=== PATIENT | male | born 1975 | race Caucasian/White ===

== ENCOUNTER 2020-12-01 05:05 | Inpatient (IN) | payer OTHER ==
[~2020-12-01] VITALS: Ht 188 cm; Wt 103.4 kg
--- NOTE | 2020-12-01 05:20 | NUR ---
PATIENT BIBRA C/O WAKING UP WITH PALPITATIONS. PATIENT -N/V -FEVER -PAIN, NO MEDICATIONS TAKEN. PATIENT STATED TO HAVING A FEW ALCOHOLIC DRINKS LAST NIGHT. PATIENT IS A/O X 4, RR EVEN AND UNLABORED, NO SOB NOTED. PATIENT CONNECTED TO CARDIAC AND POX MONITOR.
[2020-12-01 05:26] LABS: BASOPHILS % (AUTO) 0.7 % (0.0-2.0); EOSINOPHILS % (AUTO) 3.4 % (0.0-6.0); HEMATOCRIT 43 % (39-51); HEMOGLOBIN 14.5 g/dL (13.5-17.5); LYMPHOCYTES # (AUTO) 3.8 K/uL (0.8-4.8); LYMPHOCYTES % (AUTO) 57.5 % (20.0-44.0); MEAN CORPUSCULAR HGB CONC 34 g/dl (31.0-36.0); MEAN CORPUSCULAR VOLUME 95 fL (80-96); MONOCYTES # (AUTO) 0.5 K/uL (0.1-1.30); MONOCYTES % (AUTO) 7.9 % (2.0-12.0); NEUTROPHILS % (AUTO) 30.5 % (43.0-81.0); PLATELET COUNT (AUTO) 245 K/uL (150-450); RED BLOOD CELL COUNT(AUTO) 4.51 MIL/uL (4.5-6.0); WHITE BLOOD COUNT (AUTO) 6.5 K/uL (4.3-11.0)
[2020-12-01 05:35] LABS: CALCIUM, SERUM 9.1 mg/dL (8.5-10.1); CREATININE 1.3 mg/dL (0.6-1.3); POTASSIUM 3.4 mmol/L (3.5-5.1)
[2020-12-01 05:53] LABS: ALBUMIN 4.2 g/dL (3.4-5.0); BILIRUBIN,DIRECT 0.1 mg/dL (0.0-0.2); BILIRUBIN,TOTAL 0.2 mg/dL (0.2-1.0); TOTAL PROTEIN, SERUM 7.4 g/dL (6.4-8.2)
[2020-12-01 06:18] LABS: LYMPHOCYTES % (MANUAL) 64 % (16-48); MONOCYTES % (MANUAL) 6 % (0-11.0); NEUTROPHILS % (MANUAL) 30 (42-76)
[2020-12-01] MEDS ORDERED: ASPIRIN 81 MG TAB.CHEW ONE ×2 (06:22→08:50)
[2020-12-01] MEDS ORDERED: ASPIRIN EC 81 MG TABLET.DR PO ONE (06:30)
[2020-12-01] MEDS ORDERED: Z GUARD REMEDY 2 OZ OINT TP PRN (08:30)
[2020-12-01] MEDS ORDERED: MORPHINE SULFATE INJ 2 MG/ML DISP.SYRIN IV PRN (08:30)
[2020-12-01] MEDS ORDERED: LORAZEPAM 1 MG TABLET PO PRN (08:30)
[2020-12-01] MEDS ORDERED: ONDANSETRON HCL/PF 4 MG/2 ML VIAL IVP PRN (08:30)
[2020-12-01] MEDS ORDERED: ACETAMINOPHEN 325 MG TABLET PO PRN (08:30)
[2020-12-01] MEDS ORDERED: HYDROCODONE/APAP 5/325MG TABLET PO PRN (08:30)
[2020-12-01] MEDS ORDERED: MAGNESIUM HYDROXIDE 30 ML UDC PO PRN (08:30)
[2020-12-01] MEDS ORDERED: ENOXAPARIN SODIUM 40 MG/0.4 ML DISP.SYRIN SQ SCH (08:30)
[2020-12-01] MEDS ORDERED: POTASSIUM CHLORIDE 20 MEQ TAB.PRT.SR PO ONE ×2 (08:30→08:50)
[2020-12-01] MEDS ORDERED: MAG HYDROX/AL HYDROX/SIMETH 30 ML UDC PO PRN (08:30)
[2020-12-01] MEDS ORDERED: ZOLPIDEM TARTRATE 5 MG TABLET PO PRN (08:30)
[2020-12-01] MEDS ORDERED: ENOXAPARIN SODIUM 40 MG/0.4 ML DISP.SYRIN SQ ONE (08:49)
[2020-12-01] MEDS ORDERED: ASPIRIN 81 MG TAB.CHEW PO SCH (09:00)
[2020-12-01] MEDS ORDERED: LORAZEPAM 1 MG TABLET ONE (09:02)
--- NOTE | 2020-12-01 09:05 | NUR ---
THE PATIENT C/O BEING ANXIOUS. ATIVAN PRN GIVEN PER ORDER. WILL CONTINUE TO MONITOR THE PATIENT
[2020-12-01 09:06] LABS: PHOSPHORUS 3.9 mg/dL (2.5-4.9)
[2020-12-01] MEDS ORDERED: CT SWABBABLE VALVE TRANS SET 1 EA INFUS.SET MC ONE (09:45)
[2020-12-01] MEDS ORDERED: NITROGLYCERIN 0.4 MG/TAB BOTTLE ONE (09:45)
[2020-12-01] MEDS ORDERED: METOPROLOL TARTRATE INJ 5 MG/5 ML AMPUL ONE (09:45)
[2020-12-01] MEDS ORDERED: IOHEXOL-350 100 ML VIAL IV ONE (09:45)
[2020-12-01] MEDS ORDERED: IV NS 0.9% 250 ML IV ONE (09:46)
[2020-12-01 09:53] LABS: THYROID STIMULATING HORMONE 2.946 uIU/mL (0.358-3.74)
[2020-12-01] MEDS: METOPROLOL TARTRATE INJ 5 MG/5 ML AMPUL IVP PRN ×2 (09:55→10:00)
[2020-12-01] MEDS ORDERED: NITROGLYCERIN 0.4 MG/TAB BOTTLE SL ONE (10:00)
--- NOTE | 2020-12-01 10:11 | NUR ---
CTA PROCEDURE WELL TOLERATED BY THE PT. V/S STABLE, KEPT RESTED AND COMFORTABLE. REPORT GIVEN TO TIMUR MORA FOR KIKE.
--- NOTE | 2020-12-01 11:59 | NUR ---
THE PATIENT ALERT AND ORIENTED X4. IN ROOM AIR AND DENIES SOB. RESPIRATION REGULAR AND UNLABORED. DENIES PAIN. ATTACHED TO THE MONITOR. WARM BLANKET PROVIDED FOR COMFORT. WILL CONTINUE TO MONITOR THE PATIENT.
[2020-12-01] MEDS: METOPROLOL TARTRATE 50 MG TABLET PO SCH ×3 (12:01→23:49)
--- NOTE | 2020-12-01 12:28 | NUR ---
US AT BEDSIDE
--- NOTE | 2020-12-01 12:34 | NUR ---
NURSING SUP GAVE 316-1.
[2020-12-01] MEDS ORDERED: METOPROLOL TARTRATE 50 MG TABLET ONE (12:43)
--- NOTE | 2020-12-01 12:45 | NUR ---
RN NOTE RECEIVED REPORT FROM TIMUR MASON FOR KIKE
--- NOTE | 2020-12-01 12:50 | NUR ---
REPORT GIVEN TO NURSE TALAVERA
--- NOTE | 2020-12-01 13:15 | NUR ---
RN NOTE PATIENT WAS TRANSFERRED FROM ER 9 TO RM 316-1. PT WAS BROUGHT UP VIA [facility]. AMBULATORY. A/O X4. BP 132/71 NC 71 RR 17 T 98.6 SA02 97% ON ROOM AIR. NO SOB NOTED. IN NO APPARENT DISTRESS. PATIENT DENIES ANY PAIN OR DISCOMFORT AT THIS TIME. IV ACCESS ON R AC #18, INTACT AND PATENT. PT IS FULLY VACCINATED FOR COVID. SAFETY MEASURES MAINTAINED. BED IN LOWEST POSITION, BRAKES LOCKED. SIDE RAILS UP X2. CALL LIGHT WITHIN REACH. WILL CONTINUE PLAN OF CARE.
--- NOTE | 2020-12-01 14:10 | NUR ---
RN NOTE PATIENT WAS TRANSFERRED TO ROOM 329-1
[2020-12-01 16:00] VITALS: BP 125/70
--- NOTE | 2020-12-01 18:12 | NUR ---
RN CLOSING NOTE PATIENT RESTING IN BED. A/O X4 ON ROOM AIR, NO SOB NOTED. NO S/S OF RESPIRATORY DISTRESS. DENIES ANY PAIN OR DISCOMFORT AT THIS TIME. IV ACCESS ON R AC #18, INTACT AND PATENT. DUE MEDS GIVEN ORDERED. ALL NEEDS HAVE BEEN MET AND ATTENDED. SAFETY MEASURES MAINTAINED. BED IN LOWEST POSITION, BRAKES LOCKED. SIDE RAILS UP X2. KEPT CALL LIGHT WITHIN REACH. WILL ENDORSE CONTINUITY OF CARE TO ONCOMING SHIFT.
--- NOTE | 2020-12-01 19:45 | NUR ---
CIRCUIT TESTER NOTES ON BED A/O X4,BREATHING REGULAR,SALINE LOCK RIGHT AC INTACT AND PATENT,AMBULATORY.DENIES DISCOMFORTS THE MOMENT,CALL LIGHT IN REACH,NEEDS ANTICIPATED.
[2020-12-01 20:00] VITALS: BP 119/83
--- NOTE | 2020-12-01 21:00 | NUR ---
ONCOLOGIST NOTES SR WITH PVC'S ON TELE MONITOR-71
--- NOTE | 2020-12-01 23:51 | NUR ---
PIANO PROFESSOR NOTES C/O INSOMNIA,AMBIEN 5MG PO GIVEN PER PATIENT REQUEST.
[2020-12-02] VITALS: BP 119/80
[2020-12-02 04:00] VITALS: BP_SYST 118; BP_SYST 140; BP_DIAS 61; BP_DIAS 81
[2020-12-02] MEDS: METOPROLOL TARTRATE 50 MG TABLET PO SCH (06:36)
[2020-12-02 06:38] LABS: BASOPHILS % (AUTO) 0.4 % (0.0-2.0); EOSINOPHILS % (AUTO) 2.4 % (0.0-6.0); HEMATOCRIT 43 % (39-51); HEMOGLOBIN 14.5 g/dL (13.5-17.5); LYMPHOCYTES % (AUTO) 34.7 % (20.0-44.0); MEAN CORPUSCULAR HGB CONC 34 g/dl (31.0-36.0); MEAN CORPUSCULAR VOLUME 96 fL (80-96); MONOCYTES # (AUTO) 0.5 K/uL (0.1-1.30); MONOCYTES % (AUTO) 8.7 % (2.0-12.0); NEUTROPHILS # (AUTO) 3.1 K/uL (1.8-8.9); NEUTROPHILS % (AUTO) 53.8 % (43.0-81.0); PLATELET COUNT (AUTO) 225 K/uL (150-450); RED BLOOD CELL COUNT(AUTO) 4.49 MIL/uL (4.5-6.0); WHITE BLOOD COUNT (AUTO) 5.8 K/uL (4.3-11.0)
--- NOTE | 2020-12-02 06:53 | NUR ---
CITY CLERK NOTES SLEPT WELL AT NIGHT WITH AMBIEN,DENIES HEADACHE,LATEST BP-120/76,HR-54,DUE LOPRESSOR 50MG PO GIVEN SCHEDULE.IN NO ACUTE DISTRESS,FOR D/C PLANNING.
[2020-12-02 06:58] LABS: THYROID STIMULATING HORMONE 2.538 uIU/mL (0.358-3.74)
[2020-12-02] MEDS ORDERED: PANTOPRAZOLE 40 MG TABLET.DR PO SCH (07:30)
--- NOTE | 2020-12-02 07:30 | NUR ---
MS RN OPENING NOTES PATIENT RESTING IN BED. A/O X4 ON ROOM AIR, NO SOB NOTED. NO S/S OF RESPIRATORY DISTRESS. DENIES ANY PAIN OR DISCOMFORT AT THIS TIME. IV ACCESS ON R AC #18, INTACT AND PATENT. ABLE TO MAKE NEEDS KNOWN. SAFETY MEASURES MAINTAINED. BED IN LOWEST POSITION, BRAKES LOCKED. SIDE RAILS UP X2. KEPT CALL LIGHT WITHIN REACH. WILL CONTINUE TO MONITOR.
[2020-12-02 07:39] LABS: POTASSIUM 4.1 mmol/L (3.5-5.1)
[2020-12-02 07:40] LABS: CALCIUM, SERUM 8.7 mg/dL (8.5-10.1); CREATININE 1.2 mg/dL (0.6-1.3); MAGNESIUM 2.3 mg/dL (1.8-2.4); PHOSPHORUS 3.4 mg/dL (2.5-4.9)
[2020-12-02 08:00] VITALS: BP 115/74
[2020-12-02] MEDS ORDERED: ZOLP5TAB2 PO (10:21)
--- NOTE | 2020-12-02 12:00 | NUR ---
MS CONCERT PIANIST NOTES PATIENT FOR DISCHARGE PER DOCTOR'S ORDER. FOR DISCHARGE TO HOME. DISCHARGE INSTRUCTION AND EDUCATION PROVIDED TO PATIENT AND EXPLAINED MEDICATIONS AND PRESCRIPTIONS. PATIENT VERBALIZED UNDERSTANDING. DISCHARGE FORM AND BELONGINGS LIST FORM SIGNED BY PATIENT. ALL BELONGINGS ACCOUNTED FOR. NAME WRIST BAND AND IV LINE REMOVED. ACCOMPANIED PATIENT TO THE LOBBY AND LEFT VIA PRIVATE CAR BY HIMSELF. CHARGE NURSE AND MD ARE AWARE OF DISCHARGE.
== END 2020-12-02 12:00 | disposition home or self-care (01) | DRG 917 ==
LOC: ER 05:09 → TRANSITION 10:31 → TELE 12:43 → MED 12-02 08:59
PROVIDERS: ADMIT Nurse Practitioner Acute Care; ATTEND Nurse Practitioner Acute Care
DX: T51.91XA Toxic effect of unspecified alcohol, accidental (unintentional), initial encounter (principal); I21.A1 Myocardial infarction type 2; I47.1 Supraventricular tachycardia; E11.9 Type 2 diabetes mellitus without complications; E66.9 Obesity, unspecified; Z68.27 Body mass index [BMI] 27.0-27.9, adult; I10 Essential (primary) hypertension; E87.6 Hypokalemia; Z90.49 Acquired absence of other specified parts of digestive tract; R79.89 Other specified abnormal findings of blood chemistry; Y92.9 Unspecified place or not applicable; Y90.9 Presence of alcohol in blood, level not specified; Z20.822 Contact with and (suspected) exposure to COVID-19; Y92.009 Unspecified place in unspecified non-institutional (private) residence as the place of occurrence of the external cause
CPT/HCPCS: 36415; 71045-TC; 75574; 80048-TC; 80061-TC; 80076-TC; 83735-TC; 83880; 84100-TC; 84439-TC; 84443-TC; 84484-TC; 85025-TC; 85378-TC; 85730-TC; 93307-TC; C9803; G0378; J1650; J2270; J3490; J7050; Q9967